=== PATIENT | female | born 1985 | race African-American/Black ===

== ENCOUNTER 2017-02-04 20:27 | Emergency (ER) | payer OTHER ==
[~2017-02-04] VITALS: Ht 170.2 cm; Wt 119.7 kg
--- NOTE | ~2017-02-04 | CT114 ---
[facility] A Service of [facility] & [facility] RADIOLOGY TEXT RESULTS PATIENT: PRAMOD WALDRON LOCATION: SED : 89 UNIT #: [id number] AGE: [address]: Dariana Sims MD SEX: F ORDER DR: [id number] [address] [id number] MR#: [id number] #: [id number] NAME: PRAMOD WALDRON : 1985 SEX: F STUDY DATE/TIME: 02/04/2017 21:46 UNIT: SED ROOM: STUDY DESCRIPTION: CT Soft Tissue Neck W Cont Attending Physician: Dariana Sims M.D. Ordering Physician: Irene Monsalve Pa-C Primary Care Physician: Filomena Iraheta M.D. MEDICAL IMAGING REPORT This report is preliminary unless electronic signature is present. EXAM CT neck soft tissue with contrast HISTORY Sore throat, left side of throat is swollen for 3 days. Marked with a fish oil tablet. COMMENT CT of the neck soft tissue performed during the intravenous administration of 100 mL of Isovue-370. Imaging acquired in the axial plane followed by sagittal and coronal reconstructed imaging. This CT exam was performed with one or more of the following radiation dose reduction techniques: automatic exposure control, adjustment of mA and/or kV according to patient size, and iterative reconstruction. The parotid glands are within normal limits bilaterally. There is asymmetric enlargement of, and mildly asymmetrically increased enhancement of the left side submandibular gland when compared to the right. The central ducts are prominent bilaterally but I do not see an obstructing sialolith on either side. There is stranding in the fat adjacent to the left-sided submandibular gland and there is mild asymmetric thickening of the platysma muscle on the left. Stranding is seen in the submental region bilaterally. The submandibular lymph nodes are asymmetrically prominent on the left when compared to the right. Largest level 2 jugular chain lymph node on the right measures 2.4 cm long axis dimension. Largest jugular chain level 2 lymph node on the left measures about 1.8 cm long axis dimension. There is a level 2D lymph node on the left than measures up to about 1.4 cm long axis dimension on axial imaging but up to about 2.9 cm long axis dimension on coronal imaging. Bilaterally there are jugular chain nodes that are enlarged when sagittal [facility] A Service of [facility] & [facility] RADIOLOGY TEXT RESULTS PATIENT: PRAMOD WALDRON LOCATION: [facility] : [birth year] UNIT #: [id number] AGE: [address]: Dariana Sims MD SEX: F ORDER DR: and coronal measurements are obtained. On the right side the largest of these nodes is about 2.5 cm jugular chain 4B level. The lymphoid tissue at the tongue base is asymmetrically prominent on the left. The epiglottis is well defined. There is no retropharyngeal fluid collection. The airway is patent. The thyroid gland is unremarkable. There is some asymmetric and mildly heterogeneous enlargement of the left side palatine tonsil when compared to the right and some asymmetric thickening on the left-sided aryepiglottic fold to the piriform sinus region. I do not see a drainable fluid collection but this is all worrisome for infection in light of the history provided. IMPRESSION 1. There are multiple abnormalities. Gel cap overlies an asymmetrically enlarged left side submandibular gland. It shows some asymmetrically increased enhancement and stranding in the adjacent fat and mild thickening of the platysma muscle. The appearance is concerning for infectious or inflammatory disease of the left side submandibular gland resulting in sialadenitis. There is no obstructing sialolith. 2. There is also asymmetric enlargement of the left side palatine tonsil and lingual tonsil as well as some asymmetric soft tissue fullness associated with left-sided aryepiglottic fold into the piriform sinus. No drainable fluid collection is seen. These findings are also worrisome for infection/inflammation. There could be some phlegmonous change but I do not see a true peritonsillar abscess. 3. There is extensive bilateral cervical lymphadenopathy with sample measurements provided above. It is most likely that they are reactive given that there is likely infectious or inflammatory disease involving the left side submandibular gland and tonsillar tissue. Further correlation with the clinical findings recommended. 4. The patient has dental disease involving the left mandibular molar tooth which is also a possible source of infection and should be evaluated by a dentist or oral maxillofacial surgery. There does not appear to be cortical disruption of the mandible at this time but the caries appears to be fairly severe. STAT * RESULT Dictated by... Jaqueline Moody M.D. THIS IS AN ELECTRONICALLY VERIFIED REPORT Jaqueline Moody M.D. at 02/04/2017 11:17 PM MIKAELA/pancho TD: 02/04/2017 22:20 [facility] A Service of [facility] & [facility] RADIOLOGY TEXT RESULTS PATIENT: PRAMOD WALDRON LOCATION: [facility] [place] : 89 UNIT #: [id number] AGE: [address]: Dariana Sims MD SEX: F ORDER DR: ZION #: [id number] MEDICAL IMAGING REPORT Page 1 of 1
[~2017-02-04 20:27] MED LIST: AMOXICILLIN875 MG PO
[2017-02-04 21:22] LABS: BASOPHIL# 0.1 X10e3 (0-0.3); BASOPHIL% 0.8 % (0-2.5); EOSINOPHIL# 0.3 X10e3 (0-0.7); EOSINOPHIL% 5.2 % (0.0-7.0); HEMATOCRIT 41.7 % (35.0-45.0); HEMOGLOBIN 13.9 gm/dL (12.0-16.0); LYMPHOCYTE# 2.7 X10e3 (1.0-3.5); MEAN CELL VOLUME 87.6 FL (83-96); MEAN CORPUSCULAR HEMOGLOBIN 29.3 PG (28-34); MEAN CORPUSCULAR HGB CONC 33.4 g/dL (30-36); MONOCYTE# 0.5 X10e3 (0-1.0); MONOCYTE% 7.5 % (3.0-12.0); NEUTROPHIL# 2.6 X10e3 (1.5-7.1); NEUTROPHIL% 42.5 % (40-75); PLATELET COUNT 221 X10e3 (140-420); RED BLOOD COUNT 4.76 X10e (3.90-5.30); RED CELL DISTRIBUTION WIDTH 14.2 % (11.0-15.5); WHITE BLOOD COUNT 6.2 X10e3 (4.0-10.5)
[2017-02-04 21:23] LABS: DIFF IND NO
[2017-02-04 21:29] LABS: ALBUMIN SERUM 4.4 g/dL (3.5-5.0); BILIRUBIN,TOTAL 0.5 mg/dL (0.2-2.0); BUN/CREATININE RATIO 17.5; CALCIUM SERUM 9.5 mg/dL (8.4-10.2); CREATININE SERUM 0.8 mg/dL (0.6-1.4); GLOM FILT RATE Estimated 115.6 mL/min (>60); POTASSIUM 3.8 mmol/L (3.5-5.1); PROTEIN TOTAL SERUM 8.6 g/dL (6.0-8.3)
[2017-02-04] MEDS ORDERED: AUGMENTIN PO (22:55)
[2017-02-04] MEDS ORDERED: MEDROL4 M1 (22:55)
== END 2017-02-04 23:16 | disposition home or self-care (01) ==
LOC: SED 20:27
PROVIDERS: Physician Assistant
DX: K04.7 Periapical abscess without sinus (principal); K02.9 Dental caries, unspecified; K12.2 Cellulitis and abscess of mouth; F17.200 Nicotine dependence, unspecified, uncomplicated
CPT/HCPCS: 36415; 70491; 80053; 84703; 85025; 87651; 96361; 96365; 96375; 99284; J0295; J1100; Q9967